=== PATIENT | male | born 1985 | race Caucasian/White ===

== ENCOUNTER 2017-12-13 12:46 | Emergency (ER) | payer OTHER ==
[2017-12-13 13:15] VITALS: BP 140/69; PULSE 92; TEMP 98.7; BMI 29.2
[2017-12-13] MEDS ORDERED: KETOROLAC TROMETHAMINE 60 MG/2 ML VIAL IM ONE (13:49)
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
[2017-12-13] MEDS ORDERED: KETOROLAC TROMETHAMINE 60 MG/2 ML VIAL ONE (13:57)
== END 2017-12-13 14:09 | disposition home or self-care (01) ==
LOC: JERFT 12:46
PROC: 3E0233Z Introduction of Anti-inflammatory into Muscle, Percutaneous Approach (ICD-10-PCS; principal; 2017-12-13)
DX: M54.5 Low back pain (principal); M54.2 Cervicalgia; V43.52XA Car driver injured in collision with other type car in traffic accident, initial encounter; Y92.488 Other paved roadways as the place of occurrence of the external cause; Y93.89 Activity, other specified; Y99.8 Other external cause status
CPT/HCPCS: 99281-25

== ENCOUNTER 2021-03-18 12:55 | Emergency (ER) | payer OTHER ==
[2021-03-18 13:20] VITALS: BP 125/80; PULSE 60; TEMP 98.6; BMI 29.5
[2021-03-18 14:45] LABS: PH,URINE 5.5 (5.0-8.0); URINE APPEARANCE CLEAR; URINE BILIRUBIN NEGATIVE (NEGATIVE); URINE COLOR YELLOW; URINE GLUCOSE (UA) NEGATIVE (NEGATIVE); URINE KETONE NEGATIVE (NEGATIVE); URINE LEUK ESTERASE NEGATIVE (NEGATIVE); URINE NITRITE NEGATIVE (NEGATIVE); URINE PROTEIN NEGATIVE (NEGATIVE); URINE UROBILINOGEN 0.2 mg/dL (0.2-1.0)
[2021-03-18] MEDS ORDERED: KETOROLAC TROMETHAMINE 30 MG/1 ML VIAL IM ONE (15:32)
[2021-03-18] MEDS ORDERED: KETOROLAC TROMETHAMINE 30 MG/1 ML VIAL ONE (15:38)
[2021-03-18 16:36] LABS: SYPHILIS W/ RPR CONF NON-REACTIVE (NONREACTIVE)
[2021-03-18 17:05] LABS: HIV INTERPRETATION NEGATIVE (NEGATIVE)
== END 2021-03-18 17:22 | disposition home or self-care (01) ==
LOC: JER 12:55
PROC: 3E0233Z Introduction of Anti-inflammatory into Muscle, Percutaneous Approach (ICD-10-PCS; principal; 2021-03-18)
DX: R07.0 Pain in throat (principal)
CPT/HCPCS: 36415; 81003; 86780; 87086; 87389; 87491; 87591; 87880; 99284-25

== ENCOUNTER 2021-05-02 06:05 | Day surgery (SDC) | payer OTHER ==
[2021-04-29 09:54] VITALS: BMI 30.7
[2021-05-02] MEDS ORDERED: ACETAMINOPHEN 325 MG TABLET (FP) PO PRN ×2 (07:01→08:47)
[2021-05-02] MEDS ORDERED: oxyCODONE HCL 5 MG TABLET PO PRN ×2 (07:02→08:48)
[2021-05-02] MEDS ORDERED: BUPIVACAINE HCL/PF 2.5 MG/ML - 30 ML VIAL IJ ONE ×3 (07:15→08:24)
[2021-05-02] MEDS ORDERED: PROPOFOL 20 ML ONE ×2 (07:19→08:19)
[2021-05-02] MEDS ORDERED: MIDAZOLAM HCL 2 MG/2 ML SINGLE DOSE VIAL ONE (07:19)
[2021-05-02] MEDS ORDERED: SODIUM CHLORIDE 0.9% P/F 10 ML VIAL IJ ONE (07:21)
[2021-05-02] MEDS ORDERED: ceFAZolin SODIUM 1 GM VIAL ONE (07:21)
[2021-05-02] MEDS ORDERED: GLYCOPYRROLATE 0.2 MG/1 ML VIAL ONE (07:21)
[2021-05-02] MEDS ORDERED: ONDANSETRON 4 MG/2 ML VIAL ONE (07:38)
[2021-05-02] MEDS ORDERED: KETOROLAC TROMETHAMINE 30 MG/1 ML VIAL ONE (07:39)
[2021-05-02] MEDS ORDERED: ONDANSETRON 4 MG/2 ML VIAL IVPUSH PRN (08:47)
[2021-05-02] MEDS ORDERED: PROMETHAZINE HCL 25 MG/1 ML VIAL IVPUSH PRN (08:47)
[2021-05-02] MEDS ORDERED: LACTATED RINGERS SOLUTION 1,000 ML IV SCH (09:00)
[2021-05-02 10:21] VITALS: TEMP 98
[2021-05-02 10:24] VITALS: BP 122/77; PULSE 74
== END 2021-05-02 10:24 | disposition home or self-care (01) ==
LOC: FASU 06:05
PROVIDERS: ATTEND Orthopaedic Surgery
PROC: 0JBH0ZZ Excision of Left Lower Arm Subcutaneous Tissue and Fascia, Open Approach (ICD-10-PCS; principal; 2021-05-02 07:30)
DX: L72.0 Epidermal cyst (principal)
CPT/HCPCS: 88304-TC; 94760